=== PATIENT | female | born 1955 | race Caucasian/White ===

== ENCOUNTER 2018-04-19 09:33 | Outpatient (CLI) | payer BC ==
[2018-04-19] VITALS (21 sets, daily range): BP systolic 115–152; BP diastolic 63–101
== END 2018-04-19 23:59 | disposition home or self-care (01) ==
LOC: CARD DIAG 09:33
PROVIDERS: ATTEND Internal Medicine Cardiovascular Disease
DX: R42 Dizziness and giddiness (principal)
CPT/HCPCS: 93660

== ENCOUNTER 2023-07-29 06:39 | Day surgery (SDC) | payer MEDICARE, BC ==
[~2023-07-29] VITALS: Ht 170.2 cm; Wt 95.3 kg
[2023-07-29] MEDS ORDERED: AMLO5TAB16 PO (07:02)
[2023-07-29] MEDS ORDERED: LOSA25TA41 PO (07:02)
[2023-07-29 07:03] VITALS: BP 145/81; PULSE 55; RESP 16; TEMP 98.3; O2SAT 95
[2023-07-29 09:15] VITALS: BP 151/80; PULSE 56; RESP 16; O2SAT 94
[2023-07-29 09:30] VITALS: BP 150/48; PULSE 69; RESP 14; O2SAT 94
[2023-07-29 09:45] VITALS: BP 160/93; PULSE 63; RESP 12; O2SAT 93
[2023-07-29 10:00] VITALS: BP 151/71; PULSE 57; RESP 12; O2SAT 93
[2023-07-29 10:15] VITALS: BP 147/84; PULSE 50; RESP 14; O2SAT 93
== END 2023-07-29 10:40 | disposition home or self-care (01) ==
LOC: SSTAY O 06:39
PROVIDERS: ATTEND Radiology Diagnostic Radiology
DX: E04.2 Nontoxic multinodular goiter (principal); I10 Essential (primary) hypertension; E78.5 Hyperlipidemia, unspecified; F32.A Depression, unspecified; Z88.5 Allergy status to narcotic agent; Z88.8 Allergy status to other drugs, medicaments and biological substances; Z91.030 Bee allergy status; Z91.040 Latex allergy status; Z79.899 Other long term (current) drug therapy
CPT/HCPCS: 10005; 10006